=== PATIENT | male | born 1990 | race Two or more races ===

== ENCOUNTER 2017-05-06 03:03 | Emergency (ER) | payer MEDICAID ==
[~2017-05-06] VITALS: Ht 165.1 cm; Wt 72.6 kg
[2017-05-06] MEDS ORDERED: LORazepam 2MG/ML-1ML VIAL IV ONE (03:15)
[2017-05-06] MEDS ORDERED: TETANUS-DIPTH-ACEL PERTUSSIS 0.5ML SYRG IM ONE (03:15)
[2017-05-06] MEDS ORDERED: cefTRIAXone 1GM/10ml IVPUSH 10 ML IV ONE (03:15)
[2017-05-06 03:24] LABS: Basophils # (auto) 0 uL; Basophils % (auto) 0.3 % (0.0-2.0); Eosinophils # (auto) 0 uL; Eosinophils % (auto) 0.1 % (0.0-7.0); Hemoglobin 17.3 g/dL (13.5-17.5); Lymphocytes # (auto) 3.8 uL; Lymphocytes % (auto) 36.8 % (10.0-50.0); Mean Corpuscular Hemoglobin 30.1 pg (28.0-32.0); Mean Corpuscular Hgb Conc. 33.9 g/dL (32.0-36.0); Mean Corpuscular Volume 88.9 fL (80.0-100.0); Monocytes # (auto) 0.5 uL; Monocytes % (auto) 4.6 % (0.0-12.0); Neutrophils % (auto) 58.2 % (37.0-80.0); Nucleated Red Blood Cells % 0.1 %; Platelet Count (auto) 241 10^3/uL (140-450); Red Blood Cells 5.73 10^6/uL (4.5-5.90); Red Cell Distribution Width 13.3 % (11.8-14.3); White Blood Cell 10.3 10^3/uL (4.4-10.8)
[2017-05-06 03:37] LABS: INR 1.01 (0.9-1.15); Partial Thromboplastin Time 25.8 sec (22.64-33.71)
[2017-05-06 03:47] LABS: Albumin 4.8 g/dL (3.4-5.0); BUN/Creatinine Ratio 14.4; Bilirubin, Total 0.3 mg/dL (0.2-1.0); Calcium 8.6 mg/dL (8.5-10.1); Potassium 3.5 mmol/L (3.5-5.1); Total Protein 8.6 g/dL (6.4-8.2)
[2017-05-06] MEDS ORDERED: NEOMYCIN-BACITRACIN-POLYM UNITDOSE PKG TOP OINT TOP ONE (04:45)
[2017-05-06 05:38] VITALS: BP 146/94
== END 2017-05-06 12:54 | disposition home or self-care (01) ==
LOC: ER 03:08
DX: S01.01XA Laceration without foreign body of scalp, initial encounter (principal); F17.210 Nicotine dependence, cigarettes, uncomplicated; Y08.89XA Assault by other specified means, initial encounter; Y93.89 Activity, other specified; Y99.8 Other external cause status; Y92.89 Other specified places as the place of occurrence of the external cause
CPT/HCPCS: 12002; 36415; 70450; 80053; 85025; 85610; 85730; 90471; 90715; 96374

== ENCOUNTER 2024-02-24 10:47 | Emergency (ER) | payer MEDICAID ==
[~2024-02-24] VITALS: Ht 165.1 cm; Wt 85.9 kg
--- NOTE | 2024-02-24 11:30 | ED.PDOC ---
History of Present Illness HPI Comments A 33 year old male presents to the ED with the chief complaint of rectal pain onset 4 days. Patient states he began experiencing rectal pain about 4 days ago and denies any trauma, injury, fall, bleeding, fevers, chills, constipation, diarrhea. He noticed the pain worsens when he sits down. No other symptoms or modifying factors present at this time. Chief Complaint: Back Pain Time Seen by MD: 11:23 Primary Care Provider: NONE Reviewed Notes: Medications, Allergies Allergies: Coded Allergies: NO KNOWN ALLERGIES (Unverified , 02/24/24) Information Source: Patient, Spouse Mode of Arrival: Ambulatory Severity: Moderate Timing: Days Duration: Since onset Prehospital treatment: None Past Medical History PAST MEDICAL HISTORY: Denies Surgical History: Denies all surgeries Family History Family History: Reviewed,noncontributory to illness, No family hx of Cancer, No family hx of Heart anu, No family hx of HTN, No family hx ofKidney anu, No family hx of Liver anu, No family hx of Lung anu, No family hx of Stroke, Family hx of DM Social History Smoker: Cigarettes Alcohol: Occasionally Drugs: Marijuana Lives In: Home Constitutional: denies: chills, diaphoresis, fatigue, fever, malaise, sweats, weakness, others EENTM: denies: blurred vision, double vision, ear bleeding, ear discharge, ear drainage, ear pain, ear ringing, eye pain, eye redness, hearing loss, mouth pain, mouth swelling, nasal discharge, nose bleeding, nose congestion, nose pain, photophobia, tearing, throat pain, throat swelling, voice changes, others Respiratory: denies: cough, hemoptysis, orthopnea, SOB at rest, shortness of breath, SOB with excertion, stridor, wheezing, others Cardiovascular: denies: chest pain, dizzy spells, diaphoresis, Dyspnea on exertion, edema, irregular heart beat, left arm pain, lightheadedness, palpitations, PND, syncope, others Gastrointestinal: reports: rectal pain; denies: abdomen distended, abdominal pain, blood streaked bowels, constipated, diarrhea, dysphagia, difficulty swallowing, hematemesis, melena, nausea, poor appetite, poor fluid intake, rectal bleeding, vomiting, others Genitourinary: denies: burning, dysuria, flank pain, frequency, hematuria, incontinence, penile discharge, penile sore, pain, testicle pain, testicle swelling, urgency, others Neurological: denies: dizziness, fainting, headache, left sided numbness, left sided weakness, numbness, paresthesia, pre-existing deficit, right sided numbness, right sided weakness, seizure, speech problems, tingling, tremors, weakness, others Musculoskeletal: denies: back pain, gout, joint pain, joint swelling, muscle pain, muscle stiffness, neck pain, others Integumetry: denies: bruises, change in color, change in hair/nails, dryness, laceration, lesions, lumps, rash, wounds, others Allergic/Immunocompromised: denies: Difficulty Healing, Frequent Infections, Hives, Itching, others Hematologic/Lymphatic: denies: anemia, blood clots, easy bleeding, easy bruising, swollen glands, others Endocrine: denies: excessive hunger, excessive sweating, excessive thirst, excessive urination, flushing, intolerance to cold, intolerance to heat, unexplained weight gain, unexplained weight loss, others Psychiatric: denies: anxiety, bipolar disorder, depression, hopeless, panic disorder, schizophrenia, sleepless, suicidal, others All Other Systems: Reviewed and Negative Physical Exam General Appearance: No Apparent Distress HEENT: Normal ENT Inspection, Pharynx Normal, TMs Normal Neck: Full Range of Motion, Non-Tender, Normal, Normal Inspection Respiratory: Chest Non-Tender, Lungs Clear, No Accessory Muscle Use, No Respiratory Distress, Normal Breath Sounds Cardiovascular: No Edema, No JVD, No Murmur, No Gallop, Normal Peripheral Pulses, Regular Rate/Rhythm Breast Exam: Deferred Gastrointestinal: No Organomegaly, Non Tender, No Pulsatile Mass, Normal Bowel Sounds, Soft Genitalia: Deferred Pelvic: Deferred Rectal: Tenderness (There is tenderness to the left buttocks area that seems originating from the bone) Extremities: No calf tenderness, Normal capillary refill, Normal inspection, Normal range of motion, Non-tender, No pedal edema Musculoskeletal : Apperance: Normal Neurologic: Alert, environmental health physician II-XII nml as Tested, No Motor Deficits, Normal Affect, Normal Mood, No Sensory Deficits Cerebellar Function: Normal Reflexes: Normal Skin: Dry, Normal Color, Warm Lymphatic: No Adenopathy Was a procedure done? Was a procedure done?: No Differential Dx Considerations may include: Musculoskeletal pain, abscess, lipoma X-Ray, Labs, Meds, VS Vital Signs Date Time Temp Pulse Resp B/P (MAP) Pulse Ox O2 Delivery O2 Flow Rate FiO2 02/24/24 10:56 97.9 69 18 113/57 (75) 96 PROCEDURE(s): PELVS - PELVIS AP IMPRESSION: There is no evidence of acute fracture or dislocation. The visualized joint space is well maintained. The alignment is anatomical. There is no radiopaque foreign body. At this time, the patient was being discharged The patient will follow up with the primary care doctor The patient will return to the emergency department's condition worsens. We did explain to the patient that we did not find any abnormalities but there could be further testing done to rule out anything further We encouraged him to follow up with his primary care doctor. Images Reviewed?: Images reviewed and evaluated by me Time of 1ST Reevaluation: 11:53 Reevaluation 1ST: Unchanged Patient Education/Counseling: Diagnosis, Treatment, Prognosis, Need For Follow Up Family Education/Counseling: Diagnosis, Treatment, Prognosis, Need For Follow Up Departure 1 Departure Time of Disposition: 12:54 Impression: Primary Impression: Buttock pain Disposition: 01 HOME / SELF CARE / HOMELESS Condition: Fair Discharged With: Self, Significant Other Critical Care Note Critical Care Time?: No Stability Stability form required: No I personally scribed for EPHRAIM ECHEVARRIA MD ([email or web address]) on 02/24/24 at 11:30. Electronically submitted by Tierney Montejo ([email or web address]). I personally scribed for EPHRAIM ECHEVARRIA MD ([email or web address]) on 02/24/24 at 12:48. Electronically submitted by Tierney Montejo ([email or web address]). EPHRAIM ECHEVARRIA MD Feb 24, 2024 11:30
--- NOTE | 2024-02-24 12:41 | DVH ---
CLINICAL INDICATION: pain TECHNIQUE: 1 radiographic views of the pelvis were obtained. Comparison: None FINDINGS/IMPRESSION: There is no evidence of acute fracture or dislocation. The visualized joint space is well maintained. The alignment is anatomical. There is no radiopaque foreign body.
[2024-02-24 12:55] VITALS: BP 115/67; TEMP 98
[2024-02-24 12:58] VITALS: PULSE 70; RESP 18; O2SAT 97
== END 2024-02-24 13:04 | disposition home or self-care (01) ==
LOC: ER 10:47
DX: K62.89 Other specified diseases of anus and rectum (principal); F17.210 Nicotine dependence, cigarettes, uncomplicated; F12.10 Cannabis abuse, uncomplicated
CPT/HCPCS: 72170